=== PATIENT | male | born 1985 | race Caucasian/White ===

== ENCOUNTER 2017-08-08 23:03 | Emergency (ER) | payer MEDICAID ==
[~2017-08-08] VITALS: Ht 182.9 cm; Wt 84.0 kg
[2017-08-09] MEDS ORDERED: TETRACAINE 0.5% OPHTH DROPS 4ML OP ONE (01:00)
[2017-08-09] MEDS ORDERED: FLUORESCEIN SODIUM 1MG/STRIP OP ONE (01:00)
[2017-08-09 02:22] VITALS: BP 117/72
== END 2017-08-09 03:26 | disposition home or self-care (01) ==
LOC: ER 23:03
DX: T15.02XA Foreign body in cornea, left eye, initial encounter (principal); I48.91 Unspecified atrial fibrillation; F12.10 Cannabis abuse, uncomplicated; F17.200 Nicotine dependence, unspecified, uncomplicated; X58.XXXA Exposure to other specified factors, initial encounter; Y93.89 Activity, other specified; Y92.89 Other specified places as the place of occurrence of the external cause; Y99.8 Other external cause status
CPT/HCPCS: 65220; 99284